=== PATIENT | male | born 1995 | race Caucasian/White ===

== ENCOUNTER 2024-01-31 01:12 | Day surgery (SDC) | payer OTHER, SELFPAY ==
[2024-01-30 19:38] VITALS: BP 186/92
[2024-01-30 20:05] LABS: % Basophils 0.3 % (0-2); % Eosinophils 0.2 % (0-6); % Immature Granulocytes 0.5 % (0-0.5); % Lymphocytes 11.2 % (20.5-51.1); % Monocytes 3.8 % (1.7-9.3); Absolute Basophils 0.1 10^3/uL (0-0.2); Absolute Immature Granulocytes 0.1 10^3/uL (0-0.05); Absolute Lymphocytes 2.2 10^3/uL (1.2-3.4); Absolute Monocytes 0.7 10^3/uL (0.1-0.6); Absolute Neutrophils 16.1 10^3/uL (1.4-6.5); Hematocrit 40.2 % (39.0-52.0); Hemoglobin 13.8 g/dL (13.0-18.0); Mean Corp Hgb Conc. 34.3 g/dL (33.0-37.0); Mean Corpuscular Hgb 26.3 pg (27.0-31.0); Mean Corpuscular Volume 76.7 fL (80.0-94.0); Mean Platelet Volume 9.7 fL (7.4-10.4); Nucleated Red Blood Cells % 0 % (-); Platelet Count 372 10^3/uL (130-400); Red Blood Cell Count 5.24 10^6/uL (4.70-6.10); Red Cell Dist. Width 12.9 % (11.5-14.5); White Blood Cell Count 19.2 10^3/uL (4.8-10.8)
[2024-01-30 20:17] LABS: ALT (SGPT) 27 U/L (0-50); AST (SGOT) 24 U/L (17-59); Albumin 4.7 g/dl (3.5-5.0); Alkaline Phosphatase 113 U/L (38-126); Blood Urea Nitrogen 9 mg/dl (9-20); Calcium 9.6 mg/dl (8.4-10.2); Carbon Dioxide 24 mmol/L (22-30); Chloride 97 mmol/L (98-107); Glucose 98 mg/dl (70-99); Lipase 63 U/L (23-300); Potassium 4.3 mmol/L (3.5-5.1); Sodium 132 mmol/L (135-145); Total Bilirubin 1.1 mg/dl (0.2-1.3); Total Protein 7.8 g/dl (6.3-8.2); eGFR > 60.00
--- NOTE | 2024-01-30 22:12 | ED.GENMED ---
History of Present Illness
General
Chief Complaint: Abdominal Pain
Source: patient and family
Exam Limitations: none
Time Seen by Provider: 01/30/24 21:45
Nursing documentation reviewed up to this point in time: agreed with
History of Present Illness
History of Present Illness:
28 male accompanied by his mother, presents with abdominal pain right-sided sharp woke him from sleep around 530 this morning with nausea vomiting no fever or chills was away over the weekend with some friends drank a fair amount of alcohol he
states but none for about 24 to 36 hours from the time he had pain, no dysuria frequency no hematuria, no prior episodes, no GLP 1 meds no prior abdominal surgeries, no heavy lifting though he has had some herniated disks in his low back no history
of kidney stones
Past History
Past History
ED Past Medical History: None
Social History
Tobacco: Non-smoker
Alcohol: Occasional
Drug: None
Personal: Single
Living: with family
Employment: Employed
Family History
Family History: Other (Aunt with gallstones)
Review of Systems
Review of Systems
All Other Systems: Not applicable
Constitutional: Denies fever or fatigue
EENT: Reports no symptoms
Respiratory: Reports no symptoms
Cardiac: Reports no symptoms
ABD/GI: Reports abdominal pain, nausea and vomiting
: Reports no symptoms
Musculoskeletal: Reports no symptoms
Skin: Reports no symptoms
Neurological: Reports no symptoms
Endocrine: Reports no symptoms
Phy Exam
Physical Exam
Physical Exam:
Physical Exam
General: 28 male looks uncomfortable
Neck: No jaundice
Heart: s1/s2 regular rate and rhythm, no murmur. equal radial pulses.
Lungs: no acute respiratory distress. clear bilaterally
Abdomen: Tender in the epigastrium and right upper quadrant
Neuro: alert and oriented. no focal neurological deficits
Skin: no rash
Psychiatric: well kept. interactive and cooperative
Extremities: no edema.
Course
Orders/Labs/Results
Orders:
Orders
01/30/24 19:59
CMP [Comprehensive Metabolic Panel] Urgent
Complete Blood Count/With Diff Urgent
Lipase Urgent
01/30/24 22:07
IV Insert/Care/Rem.- Treatment PRN
0.9% Sodium Chloride 1000 ml [Nss] 1,000 ml IV BOLUS
HYDROmorphone [Dilaudid] 1 mg IV NOW STA
Ondansetron Injectable [Zofran] 4 mg IV NOW STA
Pantoprazole [Protonix IV] 80 mg IV NOW STA
01/30/24 22:08
CT Abd/Pel (IV only)-DH only Urgent
Comment:
Reason For Exam: abd pain r sided
US Abdomen Complete/Upper Urgent
Comment:
Reason For Exam: pain
01/31/24 00:05
HYDROmorphone [Dilaudid] 1 mg IV NOW STA
Ondansetron Injectable [Zofran] 4 mg IV NOW STA
Piperacillin/Tazo 4.5 Gram [Zosyn] 4.5 gram in 100 ml IV NOW
Abnormal Lab Results
01/30/24
19:59
WBC 19.2 H 10^3/uL
(4.8-10.8)
MCV 76.7 L fL
(80.0-94.0)
MCH 26.3 L pg
(27.0-31.0)
Abs Immat Gran (auto) 0.1 H 10^3/uL
(0-0.05)
Absolute Neuts (auto) 16.1 H 10^3/uL
(1.4-6.5)
Absolute Monos (auto) 0.7 H 10^3/uL
(0.1-0.6)
Neutrophils % 84.0 H %
(42.2-75.2)
Lymphocytes % 11.2 L %
(20.5-51.1)
Sodium 132 L mmol/L
(135-145)
Chloride 97 L mmol/L
(98-107)
Creatinine 0.5 L mg/dL
(0.7-1.3)
01/30/24 19:59
01/30/24 19:59
Vital Signs
Initial and Last Documented VS:
Initial Vital Signs
Temp Pulse Resp BP Pulse Ox
97.6 F 64 28 186/92 100
01/30/24 19:38 01/30/24 19:38 01/30/24 19:38 01/30/24 19:38 01/30/24 19:38
Last Documented Vital Signs
Temp Pulse Resp BP Pulse Ox
97.6 F 64 28 186/92 100
01/30/24 19:38 01/30/24 19:38 01/30/24 19:38 01/30/24 19:38 01/30/24 19:38
MDM/Problems Addressed
Differential Diagnosis Includes:
Biliary colic pancreatitis gastritis duodenitis conceivably appendicitis
MDM/Problems Addressed:
Abdominal pain nausea
Chronic conditions affecting care:
Obesity
Acute Exacerbation and/or Progression of Chronic Illness:
Alcohol use recently
*Radiology
Radiology exam reviewed: preliminary read by ED provider
*Pulse Oximetry
Patient hypoxic: no
*High Climber Interpretation
Rate: normal
Interpretation: normal
Heart Rate: 78
Rhythm: sinus
*Critical Care Note
Total Time (30-74mins, 75-104mins- exclusive of procedures): Not Applicable
Update Note
Update Note:
Update labs noted ultrasound and CT noted patient still with right upper quadrant pain, does admit to having some fatty foods over the weekend when he was out drinking, believe would be prudent to better to the hospital-symptomatic cholelithiasis
versus early cholecystitis requiring multiple dose of pain meds leukocytosis reviewed General surgeries in agreement
ED Attending Note
-
Portions of this chart may have been created with voice recognition software.� Occasional wrong word or��sound alike� substitutions may have occurred due to the inherent limitations of voice recognition software.
Discharge Plan
Departure
Patient Disposition: Admit
Date of Disposition: 01/31/24
Time of Disposition: 00:07
Admit to: Med/Surg
Presentation/result/management discussed w/ accepting MD/DO: Heron
Condition: Good
Discharge Problem:
Symptomatic cholelithiasis, Leukocytosis
Referrals:
Renetta Renteria PA-C [Family Provider] -
Interventions
Interventions:
*Risk Screen - Suicide Last Done: 01/30/24 19:38
*General Assessment Last Done: 01/30/24 22:13
*Neglect/Abuse Screening Last Done: 01/30/24 19:38
ED- Fall Risk Assessment Last Done: 01/30/24 22:13
*ED COVID-19 Vaccine History Last Done: 01/30/24 22:13
NI-Tehdax-Hoaovxbtwr Assessment Last Done: 01/30/24 22:13
Discharge Date and Time
Print Language: BERMUDIAN
[2024-01-30 22:13] VITALS: BMI 54.5
[2024-01-30] MEDS: DILAUDID 1 MG IV (22:25)
[2024-01-30] MEDS: ZOFRAN 4 MG IV (22:26)
[2024-01-30] MEDS: PROTONIX IV 80 MG IV (22:29)
[2024-01-30] MEDS: NSS 1000 IV (22:31)
[2024-01-30 23:07] VITALS: BP 194/85
[2024-01-31] VITALS (14 sets, daily range): BP systolic 112–144; BP diastolic 52–91; BMI 53.5
[2024-01-31] MEDS: DILAUDID 1 MG IV ×4 (00:44→18:31)
[2024-01-31] MEDS: ZOFRAN 4 MG IV (00:44)
[2024-01-31] MEDS: ZOSYN 100 IV (00:45)
--- NOTE | 2024-01-31 01:43 | HPS.HSE ---
Addendum entered and electronically signed by Vernon Mcbride MD 01/31/24 07:50:
Patient seen and examined independently.
Patient is a 28 yo M with a PMH of morbid obesity (BMI 53), HTN, asthma, CHIOMA (on CPAP), and lumbar back pain who presents with 24 to 36 hours of RUQ abdominal pain. Tank states that his symptoms began yesterday morning and awoke him from sleep.
His pain persisted throughout the day prompting presentation to the ED. He describes sharp pain in his RUQ and epigastrium which radiates to his back. He notes having a meal of a cheeseburger the night previously. He also notes an episode of
binge drinking with his friends 2 days prior to the onset of his symptoms. He currently has some mild residual discomfort. Associated nausea and vomiting. Associated looser stools. Denies any jaundice, pale stools, or tea colored urine. No
fevers. He denies any prior attacks of similar abdominal discomfort.
Gen: NAD
Abd: morbid obesity, soft, tender to palpation in RUQ, non-peritoneal, exam limited by body habitus
Labs and imaging were reviewed
Patient is a 28 yo M p/w acute cholecystitis
The natural history and pathophysiology of biliary and stone disease was discussed. Anatomy was reviewed. Workup thus far including labs and imaging was reviewed. Options for management including medical management with a low-fat diet versus
surgical management with cholecystectomy were considered and discussed. Given the persistence of his discomfort and elevation in his WBC, would recommend cholecystectomy.
Plan for a laparoscopic cholecystectomy with possible cholangiogram. The procedure itself, as well as the risks, benefits, and alternatives was discussed. Specifically, we discussed the risks of bleeding, infection, injury to surrounding
structures (bowel, bile ducts), CBD injury, need for open procedure. We specifically discussed that given his morbid obesity he is at increased risk for operative complications. Typical postprocedural recovery including pain management and the 10
to 20% risk of fluctuations in GI function was discussed. All questions answered. Consent signed.
-- Laparoscopic cholecystectomy with possible cholangiogram
-- NPO, IVF
-- Antibiotics: Zosyn
-- Pain control: Tylenol and IV Dilaudid as needed
Original Note:
Family Physician
-
Family Physician: Renetta Renteria
Chief Complaint
-
RUQ abd pain
History of Present Illness
28 yo male with hx of allergies, CHIOMA on cpap, HTN, accompanied by his mother, presents with abdominal pain right-sided sharp woke him from sleep around 530 this morning with nausea vomiting no fever or chills was away over the weekend with some
friends drank a fair amount of alcohol he states but none for about 24 to 36 hours from the time he had pain. Ate a burger night before pain started. No dysuria frequency no hematuria, no prior episodes, no GLP 1 meds no prior abdominal surgeries,
no heavy lifting though he has had some herniated disks in his low back and no history of kidney stones.
ED treatment
-multiple rounds of pain meds with only mild relief
-Ct and: mild distention of the gallbladder. Multiple dense stones including one likely at GB neck. Findings could reflect early choelcystitis.
-US abd: several shadowing stoes in the proximal GB whch are relatively non mobile with a reprsentative stone measuring 1.5cm.
No appreciable GB wall thickening or pericholecystic fluid to indicate acute cholecystitis.
+ marked hepatomegaly measuring 23cm in length
WBC 19.2 with neutrophils 84
LFT unremarkable
NA 134
Medical History
Past Medical History
Past Medical History: Reports Asthma, HTN and Other (CHIOMA cpap setting 8 or 9)
Past Surgical History: Reports Orthopedic (left knee meniscus repair 2012, Right ankle fx with repair 2015)
Social History
Tobacco: Non-smoker
Alcohol: Occasional
Drug: None
Personal: Single
Living: With Family
Employment: Employed
Family History
Family History: Other (aunt with gallstones)
Allergies / Home Medications
Allergies reflects when Allergies were last updated in [employer].
Home Medications with original date entered in [employer]
Allergy/Medication List:
Allergies
Allergy/AdvReac Type Severity Reaction Status Date / Time
No Known Allergies Allergy Verified 01/30/24 19:42
losartan 50mg po daily
yan 180mg po daily
Review of Systems
-
History Source: Patient
A 12 point ROS was completed and negative except as noted: Yes
Constitutional: Reports No Symptoms
EENT: Reports No Symptoms
Respiratory: Reports No Symptoms
Cardiac: Reports No Symptoms
Abdomen/GI: Reports Abdominal Pain and Vomiting
: Reports No Symptoms
Musculoskeletal: Reports No Symptoms
Skin: Reports No Symptoms
Neurological: Reports No Symptoms
Endocrine: Reports No Symptoms
Hematologic/Lymphatic: Reports No Symptoms
Psych: Reports No Symptoms
Physical Exam
Vital Signs
Vital Signs
Temp Pulse Resp BP Pulse Ox
97.6 F 64 28 186/92 100
01/30/24 19:38 01/30/24 19:38 01/30/24 19:38 01/30/24 19:38 01/30/24 19:38
Physical Exam
General: Well Developed, Well Nourished, No Apparent Distress, Comfortable and Morbidly Obese
HEENT: NormoCephalic, Anicteric and Moist mucous membranes
Respiratory: Clear and Non Labored Respirations
Cardiac: S1/S2 and Regular Rhythm
Breast: Deferred by me
GI: Soft, Normal Bowel Sounds and Tender (RUQ)
Rectal: Deferred by Provider
Genito-urinary: Deferred by me
Musculoskeletal: No Clubbing and No Cyanosis
Skin: Warm and Dry
Neuro: Awake, Alert, Oriented and AO x 3
Hematologic/Lymphatic: No Lymphadenopathy
Psych: Calm
Laboratory Results
-
01/30/24 19:59
01/30/24 19:59
Laboratory Results
Total Bilirubin 1.1 mg/dl (0.2-1.3) 01/30/24 19:59
AST 24 U/L (17-59) 01/30/24 19:59
ALT 27 U/L (0-50) 01/30/24 19:59
Alkaline Phosphatase 113 U/L (38-126) 01/30/24 19:59
Lipase 63 U/L (23-300) 01/30/24 19:59
Data Reviewed
-
CT Scan: Report Reviewed by me and Discussed with Physician
Ultrasound: Report Reviewed by me and Discussed with Physician
Impression/Plan
-
IMPRESSION:
28 yo male with hx of allergies, CHIOMA on cpap, HTN, accompanied by his mother, presents with abdominal pain right-sided sharp woke him from sleep around 530 this morning with nausea vomiting no fever or chills was away over the weekend with some
friends drank a fair amount of alcohol he states but none for about 24 to 36 hours from the time he had pain. Ate a burger night before pain started. No dysuria frequency no hematuria, no prior episodes, no GLP 1 meds no prior abdominal surgeries,
no heavy lifting though he has had some herniated disks in his low back and no history of kidney stones.
PLAN:
Admit to service of Dr Souza
#symptomatic cholelithiasis versus early cholecystitis
-NPO x meds - poss OR in am
-Pain control: tylenol, dilaudid
-cont zosyn iv
-WBC 19.2 neutrophils 84--> repeat in am
-lipase normal
-CT scan c/w gallstones, poss acute cholecystitis
-US abd: several shadowing stoes in the proximal GB whch are relatively non mobile with a representation stone measuring 1.5cm.
No appreciable GB wall thickening or pericholecystic fluid to indicate acute cholecystitis.
+ marked hepatomegaly measuring 23cm in length
#HTN
-cont losartan
#CHIOMA
-cont cpap- pt thinks setting is 8 or 9
#morbid obesity
-affects all aspects of care
-continued weight loss recommended
DVT proph: SCD for now
Full code
[2024-01-31] MEDS: LR 1000 IV ×2 (05:06→17:11)
--- NOTE | 2024-01-31 05:50 | PTCARENOTE ---
Received pt from ED into room 2135. Pt AAOx3, VSS. Upper abdomen pain 02/14. See OCT. Pt NPO for possible procedure this AM. LR @ 80 ml/hr into R FA. SCDs applied. Call johnson within reach, safe environment maintained.
[2024-01-31 07:36] LABS: % Basophils 0.4 % (0-2); % Eosinophils 2.1 % (0-6); % Immature Granulocytes 0.5 % (0-0.5); % Lymphocytes 18.4 % (20.5-51.1); % Monocytes 6.7 % (1.7-9.3); % Neutrophils 71.9 % (42.2-75.2); Absolute Basophils 0.1 10^3/uL (0-0.2); Absolute Eosinophils 0.3 10^3/uL (0-0.7); Absolute Immature Granulocytes 0.1 10^3/uL (0-0.05); Absolute Lymphocytes 2.7 10^3/uL (1.2-3.4); Absolute Neutrophils 10.5 10^3/uL (1.4-6.5); Hematocrit 40.2 % (39.0-52.0); Hemoglobin 13.2 g/dL (13.0-18.0); Mean Corp Hgb Conc. 32.8 g/dL (33.0-37.0); Mean Corpuscular Hgb 26.1 pg (27.0-31.0); Mean Corpuscular Volume 79.4 fL (80.0-94.0); Nucleated Red Blood Cells % 0 % (-); Platelet Count 344 10^3/uL (130-400); Red Blood Cell Count 5.06 10^6/uL (4.70-6.10); Red Cell Dist. Width 13.3 % (11.5-14.5); White Blood Cell Count 14.6 10^3/uL (4.8-10.8)
--- NOTE | 2024-01-31 07:50 | W.SUR.PREOP ---
Pre-Operative Surgical Note
-
I have examined this patient prior to the performance of the scheduled procedure.
The patient's condition is unchanged from the time of the current History and
Physical and the patient is able to undergo the scheduled procedure.
[2024-01-31 07:55] LABS: Carbon Dioxide 26 mmol/L (22-30)
[2024-01-31] MEDS: COZAAR 50 MG PO (08:13)
[2024-01-31] MEDS: ZOSYN 50 IV ×3 (08:13→20:20)
[2024-01-31 08:15] LABS: ALT (SGPT) 26 U/L (0-50); AST (SGOT) 26 U/L (17-59); Alkaline Phosphatase 90 U/L (38-126); Blood Urea Nitrogen 8 mg/dl (9-20); Calcium 8.9 mg/dl (8.4-10.2); Chloride 99 mmol/L (98-107); Estimated Creatinine Clearance > 125 ml/min; Glucose 97 mg/dl (70-99); Potassium 4.1 mmol/L (3.5-5.1); Sodium 136 mmol/L (135-145); Total Bilirubin 1.1 mg/dl (0.2-1.3); Total Protein 6.8 g/dl (6.3-8.2); eGFR > 60.00
--- NOTE | 2024-01-31 12:18 | CM ---
Reviewed the chart notes and spoke with the patient at the bedside. The patient resides with his parents in a two story home with no steps to enter. The patient reports on DME in home is a CPAP, no VN or SNF in past. The patient confirmed his
pharmacy of choice is the [facility]. The patient anticipates going to the OR today for laparoscopic cholecystectomy . CM continues to be available to patient/family and is monitoring medical plan for needs at discharge.
Plan: Discharge to home when medically stable.
--- NOTE | 2024-01-31 13:28 | PTCARENOTE ---
Report given to FARHAT Fagan in OR. Patient and patients dad updated at bedside.
[2024-01-31] MEDS: DILAUDID 0.5 MG IV (16:44)
--- NOTE | 2024-01-31 18:17 | PTCARENOTE ---
Pt received from PACU. VSS. 5 [facility] sites CDI. Patients father at bedside. Patient ordering low fat dinner.
--- NOTE | 2024-01-31 18:49 | W.IMMPOSTOP ---
Addendum entered and electronically signed by Vernon Mcbride MD 01/31/24 19:10:
[facility]#[id number]
Original Note:
Surgical Immed Post Op Note
-
Primary Surgeon: Reed
Assisting Surgeon: None
Pre-op Diagnosis: Acute cholecystitis
Post-op Diagnosis: Acute cholecystitis
Procedure Performed: Laparoscopic cholecystectomy
Anesthesia Type: General
Specimen / Cultures:
1. Gallbladder
Estimated Blood Loss: 7 cc
Complications: None
Operative Findings:
1. Acutely inflamed and gangrenous GB, decompression needle used
2. Critical view of safety
3. Unable to perform IOC due to bed post location
[2024-01-31] MEDS: NORMOSOL-R 1000 IV (20:18)
[2024-01-31] MEDS: ROXICODONE 5 MG PO (22:07)
[2024-01-31] MEDS: TORADOL 10 MG IV (22:55)
[2024-02-01] MEDS: ZOSYN 50 IV ×2 (02:06→07:55)
[2024-02-01 03:42] VITALS: BP 103/51
[2024-02-01] MEDS: LR IV (04:45)
[2024-02-01] MEDS: NORMOSOL-R 1000 IV (04:47)
--- NOTE | 2024-02-01 07:23 | W.PN.GS2 ---
Addendum entered and electronically signed by Vernon Mcbride MD 02/01/24 07:27:
Plan:
-- Abx: Zosyn while in hospital, plan for 4 days total with Augmentin on DC
Original Note:
Today's Communication / Plan
-
-- Low fat diet
-- Repeat labs
-- DC home thia AM if labs OK
Assessment / Plan
-
Patient is a 28 yo M POD#1 s/p laparoscopic cholecystectomy
Recovering well. No postoperative concerns.
-- Low fat diet
-- Pain control: Tylenol, Toradol, Oxycodone
-- HLIV
-- Home BP medications
-- DVT: Lovenox
-- Repeat labs
-- DC home thia AM if labs OK
Subjective Data
-
Date of Service: February 01, 2024
Reports abdominal soreness but different and improved from preoperatively. No nausea or vomiting. No fevers or chills. Minimal ambulation. Voiding.
Objective Data
-
Intake and Output
01/31/24 02/01/24 02/02/24
06:59 06:59 06:59
Intake Total 2840 / 2840
Balance 2840 / 2840
Intake:
Oral fluids 480 / 480
IV fluids (Total) 2160 / 2160
normosol 100 / 100
IV piggybacks 200 / 200
Other:
Number of approximated MODERATE 3
amounts of urine
Number of approximated LARGE 3
amounts of urine
Vital Signs
Temp Pulse Resp BP Pulse Ox
98.2 F 54 16 103/51 94
02/01/24 03:42 02/01/24 03:42 02/01/24 03:42 02/01/24 03:42 02/01/24 03:42
Calcium 8.9 mg/dl (8.4-10.2) 01/31/24 06:42
Total Bilirubin 1.1 mg/dl (0.2-1.3) 01/31/24 06:42
AST 26 U/L (17-59) 01/31/24 06:42
ALT 26 U/L (0-50) 01/31/24 06:42
Alkaline Phosphatase 90 U/L (38-126) 01/31/24 06:42
Total Protein 6.8 g/dl (6.3-8.2) 01/31/24 06:42
Albumin 4.0 g/dl (3.5-5.0) 01/31/24 06:42
Physical Exam
-
Gen: NAD
Abd: soft, obese, mild tenderness, non-peritoneal, incisions c/d/i - no erythema, ecchymosis or drainage
[2024-02-01 07:25] VITALS: BP 115/64
[2024-02-01 07:42] LABS: Hematocrit 41.6 % (39.0-52.0); Hemoglobin 13.7 g/dL (13.0-18.0); Mean Corp Hgb Conc. 32.9 g/dL (33.0-37.0); Mean Corpuscular Hgb 26.5 pg (27.0-31.0); Mean Corpuscular Volume 80.5 fL (80.0-94.0); Mean Platelet Volume 9.7 fL (7.4-10.4); Platelet Count 352 10^3/uL (130-400); Red Blood Cell Count 5.17 10^6/uL (4.70-6.10); Red Cell Dist. Width 13.6 % (11.5-14.5); White Blood Cell Count 13.1 10^3/uL (4.8-10.8)
[2024-02-01] MEDS: COZAAR 50 MG PO (07:55)
[2024-02-01 07:56] LABS: ALT (SGPT) 54 U/L (0-50); AST (SGOT) 36 U/L (17-59); Albumin 4.2 g/dl (3.5-5.0); Alkaline Phosphatase 91 U/L (38-126); Blood Urea Nitrogen 10 mg/dl (9-20); Carbon Dioxide 28 mmol/L (22-30); Chloride 102 mmol/L (98-107); Estimated Creatinine Clearance > 125 ml/min; Glucose 111 mg/dl (70-99); Potassium 4.4 mmol/L (3.5-5.1); Sodium 138 mmol/L (135-145); Total Bilirubin 0.8 mg/dl (0.2-1.3); Total Protein 7.2 g/dl (6.3-8.2); eGFR > 60.00
[2024-02-01] MEDS: ROXICODONE 5 MG PO (07:56)
--- NOTE | 2024-02-01 10:46 | CM ---
Reviewed the chart notes and spoke with the patient at the bedside. The patient is being discharged to home today. Patient's father will transport.
Plan: Discharge to home today. No additional needs identified.
== END 2024-02-01 11:05 | disposition home or self-care (01) ==
LOC: SDS 01:12
PROVIDERS: Nurse Practitioner Family; Surgery; ATTENDING PHYSICIAN Surgery; EMERGENCY PHYSICIAN Emergency Medicine; FAMILY PHYSICIAN Physician Assistant Medical
DX: K81.0 Acute cholecystitis (principal)
CPT/HCPCS: 47562; 88304; 74177; 76700; 80053; 83690; 85025; 85027; 94660; 96361; 96374; 96375; 96376; 99285; Q9967